=== PATIENT | female | born 1990 | race Caucasian/White ===

== ENCOUNTER → 2020-11-29 12:25 | Outpatient (CLI) | payer BC, SELFPAY ==
[2020-09-20 14:02] VITALS: BMI 28.8
== END ==
PROVIDERS: PCP Family Medicine; Referring Provider Nurse Practitioner Women's Health; Visit Provider Nurse Practitioner Women's Health
DX: N97.0 Female infertility associated with anovulation (principal)
CPT/HCPCS: 36415

== ENCOUNTER → 2021-01-18 10:58 | Outpatient (CLI) | payer BC, SELFPAY ==
[2020-09-20 14:02] VITALS: BMI 28.8
[2021-01-18 11:41] LABS: Progesterone Level 8.51 ng/mL (See Comment)
== END ==
PROVIDERS: PCP Family Medicine; Referring Provider Nurse Practitioner Women's Health; Visit Provider Nurse Practitioner Women's Health
DX: Z31.9 Encounter for procreative management, unspecified (principal)
CPT/HCPCS: 36415; 84144

== ENCOUNTER → 2021-03-08 11:24 | Outpatient (CLI) | payer BC, SELFPAY ==
[2021-02-26 15:19] VITALS: BMI 28.8
--- NOTE | 2021-03-08 11:26 | US_ITS ---
STUDY: ULTRASOUND OF THE FEMALE PELVIS - COMPLETE REASON FOR EXAM: Female, 30 years old. Irregular menses LMP: 02/28/2021. TECHNIQUE: Transabdominal and Transvaginal TECHNICAL QUALITY: Adequate. COMPARISON: None. FINDINGS: The uterus is anteflexed and is in a midline position. The uterus measures 8.8 cm x 4.9 cm x 4.2 cm. Normal uterine cervix. The endometrium measures 4.7 mm in thickness, and is heterogeneous (striated). There is no demonstrated endometrial mass. There is a 6 mm x 5 mm x 4 mm fibroid in the fundal portion of the uterus. I.U.D. - The patient does not have an I.U.D. The right ovary is visualized. The right ovary measures 3.9 cm x 2.3 cm x 1.7 cm. There is no right ovarian cyst or ovarian mass. There is no visualized right adnexal mass or complex lesion. There is normal arterial and normal venous vascularity. The left ovary is visualized. The left ovary measures 2.7 cm x 3.2 cm x 1.7 cm. There is no left ovarian cyst or ovarian mass. There is no visualized left adnexal mass or complex lesion. There is normal arterial and normal venous vascularity. There is minimal fluid in the cul-de-sac. US/Transvaginal Non- IMPRESSION: Small uterine fibroid. Electronically Signed: Shun Melgar MD at 13:57 EDT , Service support ,
--- NOTE | 2021-03-08 11:26 | US_ITS ---
STUDY: ULTRASOUND OF THE FEMALE PELVIS - COMPLETE REASON FOR EXAM: Female, 30 years old. Irregular menses LMP: 02/28/2021. TECHNIQUE: Transabdominal and Transvaginal TECHNICAL QUALITY: Adequate. COMPARISON: None. FINDINGS: The uterus is anteflexed and is in a midline position. The uterus measures 8.8 cm x 4.9 cm x 4.2 cm. Normal uterine cervix. The endometrium measures 4.7 mm in thickness, and is heterogeneous (striated). There is no demonstrated endometrial mass. There is a 6 mm x 5 mm x 4 mm fibroid in the fundal portion of the uterus. I.U.D. - The patient does not have an I.U.D. The right ovary is visualized. The right ovary measures 3.9 cm x 2.3 cm x 1.7 cm. There is no right ovarian cyst or ovarian mass. There is no visualized right adnexal mass or complex lesion. There is normal arterial and normal venous vascularity. The left ovary is visualized. The left ovary measures 2.7 cm x 3.2 cm x 1.7 cm. There is no left ovarian cyst or ovarian mass. There is no visualized left adnexal mass or complex lesion. There is normal arterial and normal venous vascularity. There is minimal fluid in the cul-de-sac. US/Pelvic (Non ) IMPRESSION: Small uterine fibroid. Electronically Signed: Shun Melgar MD at 13:57 EDT , Service support ,
== END ==
PROVIDERS: PCP Family Medicine; Referring Provider Obstetrics & Gynecology; Visit Provider Obstetrics & Gynecology
DX: Z87.42 Personal history of other diseases of the female genital tract (principal)
CPT/HCPCS: 76830; 76856

== ENCOUNTER → 2021-03-10 09:06 | Outpatient (CLI) | payer BC, SELFPAY ==
[2021-02-26 15:19] VITALS: BMI 28.8
[2021-03-10 09:48] LABS: Absolute Lymphocyte Count 2.64 X10^3/uL (0.83-4.51); Absolute Neutrophil Count 4.6 X10^3/uL (2.0-7.7); Basophil# 0.05 X10^3/uL; Basophil% 0.6 % (0-1); Eosinophil# 0.31 X10^3/uL; Eosinophils% 3.7 % (0-5); Hematocrit 39.8 % (37-47); Hemoglobin 12.9 g/dL (12.0-15.0); Lymphocyte # 2.64 X10^3/ul (0.83-4.51); Lymphocyte % 31.9 % (19-41); Mean Corp Hgb Conc 32.4 g/dL (32-36); Mean Corpuscular Hgb 28.3 pg (27.0-32.0); Mean Corpuscular Volume 87.3 fL (81-99); Mean Platelet Vol. 9.8 fl (6.2-12.0); Monocyte# 0.62 X10^3/uL; Monocyte% 7.5 % (0-10); NRBC Flagged by Analyzer 0 % (0-5); Neutrophil # 4.61 X10^3/uL (2.7-7.7); Neutrophil % 55.8 % (47-70); Platelet Count 267 K/mm3 (150-450); RBC Distribution Width CV 13.1 % (11.6-14.6); RBC Distribution Width SD 41.9 fl (35.1-43.9); Red Blood Count 4.56 M/mm3 (4.2-5.4); White Blood Count 8.3 K/mm3 (4.4-11.0)
[2021-03-10 10:37] LABS: Glucose 82 mg/dL (74-106); Thyroid Stim Hormone (TSH) 0.76 uIU/mL (0.358-3.74)
[2021-03-15 16:04] LABS: 17-Hydroxyprogesterone 85 ng/dL (.)
[2021-03-16 08:24] LABS: Testosterone Free 6.2 pg/mL (0.0-4.2)
== END ==
PROVIDERS: PCP Family Medicine; Referring Provider Obstetrics & Gynecology; Visit Provider Obstetrics & Gynecology
DX: Z87.42 Personal history of other diseases of the female genital tract (principal)
CPT/HCPCS: 36415; 82306; 82627; 82947; 83498; 84402; 84443; 85025; 82626

== ENCOUNTER → 2021-04-18 10:02 | Outpatient (CLI) | payer BC, SELFPAY ==
[2021-03-26 08:39] VITALS: BMI 28.8
[2021-04-18 10:56] LABS: Progesterone Level 58.39 ng/mL (See Comment)
== END ==
PROVIDERS: PCP Family Medicine; Referring Provider Obstetrics & Gynecology; Visit Provider Obstetrics & Gynecology
DX: R79.89 Other specified abnormal findings of blood chemistry (principal)
CPT/HCPCS: 36415; 84144

== ENCOUNTER → 2021-04-20 | Outpatient (CLI) | payer BC, SELFPAY | END | disposition home or self-care (01) | LOC: LABSPEC 16:50 | PROVIDERS: PCP Family Medicine; Referring Provider Obstetrics & Gynecology; Visit Provider Obstetrics & Gynecology | DX: R10.2 Pelvic and perineal pain (principal) | CPT/HCPCS: 87070; 87205 ==

== ENCOUNTER → 2021-05-10 09:45 | Outpatient (CLI) | payer BC, SELFPAY ==
--- NOTE | 2021-05-10 10:00 | RAD_ITS ---
STUDY: HYSTEROSALPINGOGRAM. REASON FOR EXAM: Female, 31 years old. Infertility FLUOROSCOPY TIME (if supplied): ( 18 seconds ) minutes/seconds. 2 images were obtained. TECHNIQUE: A hysterosalpingogram was performed by the manager of recruiting. Imaging was provided. COMPARISON: None. FINDINGS: The uterus is unremarkable. Both fallopian tubes are patent with free spill. RAD/Salpingogram IMPRESSION: Both fallopian tubes are patent with free spill. Electronically Signed: Shun Melgar MD at 11:45 EDT , Service support ,
--- NOTE | 2021-05-13 23:09 | OP.PCM_ITS ---
Problems Associated Problem List Diagnoses (1) Infertility: (2) History of irregular menstrual cycles: (3) Elevated testosterone level: (4) Pelvic pressure in female: Report of Operation Date of Procedure: 05/11/21 Description of Procedure: Preop diagnosis: Infertility Postop diagnosis: Same plus bilateral tubal patency Procedure: Hysterosalpingogram Surgeon: Carlie Alexandra Implantable devices: None Complications: None Findings: Bilateral tubal patency and normal uterine cavity Operative details: Patient was taken to the x-ray room and was placed on the x- ray table and was in the dorsal lithotomy position. Speculum was placed in the vagina and the cervix prepped with Betadine and the HSG catheter was easily introduced into the uterus and speculum removed. Radiologist was brought in and while pushing radiopaque dye into the uterus via the HSG catheter the radiologist took multiple images and views and confirmed bilateral tubal patency seen. No gross uterine filling defects or abnormalities were seen. All instruments removed from the vagina and the uterus without complication. Patient tolerated the procedure well.
== END ==
PROVIDERS: PCP Family Medicine; Referring Provider Obstetrics & Gynecology; Visit Provider Obstetrics & Gynecology
DX: Z87.42 Personal history of other diseases of the female genital tract (principal)
CPT/HCPCS: 58340; 74740; Q9967

== ENCOUNTER → 2021-05-21 | Outpatient (CLI) | payer BC, SELFPAY | END | disposition home or self-care (01) | LOC: LABSPEC 17:07 | PROVIDERS: PCP Family Medicine; Visit Provider Obstetrics & Gynecology | DX: R10.2 Pelvic and perineal pain (principal) | CPT/HCPCS: 87070; 87205 ==

== ENCOUNTER 2021-12-04 11:21 | Outpatient (CLI) | payer BC, SELFPAY | END 2021-12-04 23:59 | disposition home or self-care (01) | PROVIDERS: PCP Family Medicine; Visit Provider Student in an Organized Health Care Education/Training Program | DX: N76.0 Acute vaginitis (principal) ==

== ENCOUNTER → 2021-12-27 | Outpatient (CLI) | payer BC, SELFPAY ==
[2021-12-27 12:36] LABS: Progesterone Level 17.13 ng/mL (See Comment)
== END | disposition home or self-care (01) ==
LOC: WOBLAB 11:29
PROVIDERS: PCP Family Medicine; Visit Provider Student in an Organized Health Care Education/Training Program
DX: E28.2 Polycystic ovarian syndrome (principal)
CPT/HCPCS: 36415; 84144

== ENCOUNTER → 2022-01-25 | Outpatient (CLI) | payer BC, SELFPAY ==
[2022-01-25 11:40] LABS: Progesterone Level 15.63 ng/mL (See Comment)
== END | disposition home or self-care (01) ==
LOC: WOBLAB 09:43
PROVIDERS: PCP Family Medicine; Visit Provider Student in an Organized Health Care Education/Training Program
DX: E28.2 Polycystic ovarian syndrome (principal)
CPT/HCPCS: 36415; 84144

== ENCOUNTER → 2022-04-25 | Outpatient (CLI) | payer BC, SELFPAY ==
[2022-04-25 16:45] LABS: Progesterone Level 9.41 ng/mL (See Comment)
== END | disposition home or self-care (01) ==
LOC: WOBLAB 14:44
PROVIDERS: PCP Family Medicine; Visit Provider Student in an Organized Health Care Education/Training Program
DX: E28.2 Polycystic ovarian syndrome (principal)
CPT/HCPCS: 36415; 84144

== ENCOUNTER → 2022-05-29 | Outpatient (CLI) | payer BC, SELFPAY ==
[2022-05-29 14:55] LABS: Progesterone Level 18.88 ng/mL (See Comment)
[2022-05-29 15:02] LABS: Free T3 3.2 pg/mL (2.18-3.98); T4 Free Direct 0.95 ng/dL (0.76-1.46); Thyroid Stim Hormone (TSH) 1.79 uIU/mL (0.358-3.74)
== END | disposition home or self-care (01) ==
LOC: WOBLAB 13:47
PROVIDERS: PCP Family Medicine; Visit Provider Student in an Organized Health Care Education/Training Program
DX: N97.9 Female infertility, unspecified (principal)
CPT/HCPCS: 36415; 84144; 84439; 84443; 84481

== ENCOUNTER → 2022-06-11 | Outpatient (CLI) | payer BC, SELFPAY ==
[2022-06-11 11:37] LABS: Glucose 75GTT - 30 minutes 121 mg/dL (100-160)
[2022-06-11 11:37] LABS: Glucose 75GTT - 60 minutes 123 mg/dL (100-160)
[2022-06-11 11:37] LABS: Glucose 75GTT - Fasting 91 mg/dL (70-99)
[2022-06-11 13:05] LABS: Glucose 75GTT - 120 minutes 112 mg/dL (70-140)
== END | disposition home or self-care (01) ==
LOC: WOBLAB 10:00
PROVIDERS: PCP Family Medicine; Visit Provider Student in an Organized Health Care Education/Training Program
DX: N97.9 Female infertility, unspecified (principal)
CPT/HCPCS: 36415; 82951; 82952

== ENCOUNTER 2024-06-05 20:17 | Outpatient (CLI) | payer BC, SELFPAY ==
[2024-06-05 20:29] VITALS: BMI 29.5
[2024-06-05 20:38] VITALS: PULSE 117; O2SAT 99
[2024-06-05 20:39] VITALS: BP 122/83; PULSE 114
--- NOTE | 2024-06-05 21:09 | OB.TRI.NOTE ---
HPI - General General Date of Admission: 06/05/24 Date of Service: 06/05/24 Chief Complaint: Possible LOF HPI Narrative DAVE PRADO, is a 34 F who presents with possible LOF. She reports she was at a fair today and noticed her pants were wet on three occasions. Occasional vaginal discomfort and dysuria for one episode. No vaginal discharge or bleeding. H/o BV and bladder endometriosis. No cramping or abdominal pain. PFSH PFSH Medical History Fibromyalgia H/O herpes zoster H/O human papillomavirus infection Hematuria syndrome Migraines Home Medications ?Medication ?Instructions ?Recorded ?Last Taken ?Type docosahexaenoic acid 200 mg 1 mg PO DAILY 09/20/20 06/05/24 08:51 History capsule ( DHA) Allergy/AdvReac Type Severity Reaction Status Date / Time No Known Allergies Allergy Verified 06/05/24 20:49 Family History Grandfather DVT (deep venous thrombosis) Pacemaker CVA (cerebral vascular accident) Bleeding disorder Grandmother , age 61 Heart disease Hypertension Diabetes Sudden cardiac Father Diabetes Mother Fatty liver H/O Sjogren's disease Sister Thyroid disorder hashimotos hypothyroid Social History household members: spouse number of children: 0 current occupational status: employed current occupation: [employer] history of recent travel: No sexually active: Yes Smoking Status: Never smoker alcohol intake: never substance use type: does not use what type of physical activity do you participate in: aerobics seatbelt use: always do you feel safe at home: Yes additional social history: - Roque History 0 Elective abortions Hx Para Spontaneous abortions Hx # Term Pregnancies Ectopic pregnancies Hx # Pregnancies Multiple births # of living children Physical Exam Const alert and no apparent distress General Appearance: comfortable HEENT normocephalic Resp normal respiratory effort GI soft to palpation, non-tender and non-distended external exam normal, appearance of the vagina normal and appearance of the cervix normal Narrative: Cervix closed and thick Normal physiologic discharge noted No pooling of fluid Negative fern Extremity normal to inspection Assessment & Plan (1) 21 weeks gestation of : PLAN: Bedside TAUS performed showing subjectively normal fluid, movements noted, MVP 5.5, +FHT. SSE performed showing a closed cervix, negative for pooling, and negative for ferning. No evidence of vaginal infection on exam. No evidence of rupture. Check urine. Discharge home with return precautions. (2) Vaginal discharge:
[2024-06-05 21:10] LABS: Color, Urine Yellow (Yellow); Glucose, Dipstick Normal (Normal); Ketone-Dipstick Negative (Negative); Leukocyte Esterase-Dipstick Negative /ul (Negative); Nitrite-Dipstick Negative (Negative); Occult Blood-Urine 10 /ul (Negative); Protein-Dipstick Negative (Negative); Specific Gravity, Urine 1.015 (1.002-1.030); Urine Bilirubin Dipstick Negative (Negative); Urine Clarity Clear (Clear); Urine Urobilinogen Normal (Normal)
== END 2024-06-05 21:18 | disposition home or self-care (01) ==
LOC: WPOUT 20:21 → WP 20:21
PROVIDERS: PCP Family Medicine; Referring Provider Obstetrics & Gynecology; Visit Provider Obstetrics & Gynecology
DX: O99.891 Other specified diseases and conditions complicating pregnancy (principal); N89.8 Other specified noninflammatory disorders of vagina; Z3A.21 21 weeks gestation of pregnancy
CPT/HCPCS: 59050; 81002; 99221; G0378

== ENCOUNTER 2024-07-08 19:00 | Outpatient (CLI) | payer BC, SELFPAY ==
[2024-07-08 19:28] VITALS: BP 121/86; PULSE 109; RESP 16; TEMP 36.4
[2024-07-08 19:33] VITALS: BMI 30.2
[2024-07-08 19:43] VITALS: BP 110/77; PULSE 103; RESP 16
[2024-07-08 19:55] LABS: Hemoglobin 12.3 g/dL (12.0-15.0); Mean Corp Hgb Conc 34.2 g/dL (32-36); Mean Corpuscular Hgb 30.4 pg (27.0-32.0); Mean Corpuscular Volume 88.9 fL (81-99); Mean Platelet Vol. 9.3 fl (6.2-12.0); Platelet Count 257 K/mm3 (150-450); RBC Distribution Width CV 14.2 % (11.6-14.6); RBC Distribution Width SD 46.1 fl (35.1-43.9); Red Blood Count 4.05 M/mm3 (4.2-5.4); White Blood Count 13.8 K/mm3 (4.4-11.0)
[2024-07-08 19:58] VITALS: BP 103/72; PULSE 112; RESP 16
[2024-07-08 20:06] LABS: AST(SGOT) 22 U/L (15-37); Alanine Aminotransfer ALT/SGPT 31 U/L (13-56); Creatinine, Serum 0.55 mg/dL (0.55-1.02); EST Glomerular Filtration Rate 134 mL/min (>60); Est Glom Filt Rate - Afr Amer 163 mL/min (>60); Estimated Creatinine Clearance 142.13 ml/min; Uric Acid 2.8 mg/dL (2.6-6.0)
[2024-07-08 20:13] VITALS: BP 115/72; PULSE 97
[2024-07-08 20:17] LABS: Protein, Urine (Random) < 6.0 mg/dL (<11.9)
== END 2024-07-08 20:33 | disposition home or self-care (01) ==
LOC: WPOUT 19:02 → WP 19:02
PROVIDERS: PCP Family Medicine; Referring Provider Advanced Practice Midwife; Visit Provider Advanced Practice Midwife
DX: O99.891 Other specified diseases and conditions complicating pregnancy (principal); R03.0 Elevated blood-pressure reading, without diagnosis of hypertension; Z3A.25 25 weeks gestation of pregnancy
CPT/HCPCS: 59050; 82565; 82570; 84156; 84450; 84460; 84550; 85027; 99221; G0378

== ENCOUNTER 2024-08-10 16:42 | Outpatient (CLI) | payer BC, SELFPAY ==
[2024-08-10] VITALS (20 sets, daily range): BP systolic 119–139; BP diastolic 66–85; PULSE 96–115; RESP 16; TEMP 37.1; O2SAT 100; BMI 31.6
[2024-08-10] MEDS: DiphenhydrAMINE 50 MG/ML Syringe 25 MG IV (17:53)
[2024-08-10] MEDS: Metoclopramide 10 MG/2 ML Vial IV (17:53)
[2024-08-10 18:00] LABS: Hematocrit 34.4 % (37-47); Hemoglobin 11.5 g/dL (12.0-15.0); Mean Corp Hgb Conc 33.4 g/dL (32-36); Mean Corpuscular Hgb 29.2 pg (27.0-32.0); Mean Corpuscular Volume 87.3 fL (81-99); Mean Platelet Vol. 9.8 fl (6.2-12.0); Platelet Count 261 K/mm3 (150-450); RBC Distribution Width SD 43.9 fl (35.1-43.9); Red Blood Count 3.94 M/mm3 (4.2-5.4); White Blood Count 12.4 K/mm3 (4.4-11.0)
[2024-08-10 18:11] LABS: Protein, Urine (Random) 7.5 mg/dL (<11.9); Protein:Creat Ratio 349 mg/g CRE (0-200)
[2024-08-10 18:18] LABS: AST(SGOT) 23 U/L (15-37); Alanine Aminotransfer ALT/SGPT 24 U/L (13-56); Creatinine, Serum 0.55 mg/dL (0.55-1.02); EST Glomerular Filtration Rate 135 mL/min (>60); Est Glom Filt Rate - Afr Amer 163 mL/min (>60); Estimated Creatinine Clearance 145.43 ml/min; Uric Acid 2.7 mg/dL (2.6-6.0)
--- NOTE | 2024-08-10 19:30 | OB.TRI.NOTE ---
HPI - General General Date of Service: 08/10/24 Chief Complaint: Headache HPI Narrative DAVE PRADO, is a 34 F who presents from the office with a headache not improved by Tylenol or caffeine. BP elevated in office. 140-150s /88-99. Overall not feeling good. Decreased movement all day. No contraction no VB or LOF. No obvious UTI symptoms. Remote Hx of migraines. Has been awhile since they have been a problem BP in triage 120-130s/80s. Headache still present and mildly improved with IV Benadryl and Reglan. Protein of 349. LFTs and uric acid WNL. movement did improve Urinalysis with no protein. Discussed with patient 24 hour urine for pr/cr. And prolong BP monitoring given her early gestational age. If worsening BP or symptoms will transfer and start magnesium Maternal Data Information Final KALYAN: 10/16/24 Gestational age: 30+3 PFSH PFSH Medical History Fibromyalgia H/O herpes zoster H/O human papillomavirus infection Migraines Hematuria syndrome Home Medications ?Medication ?Instructions ?Recorded ?Last Taken ?Type docosahexaenoic acid 200 mg 1 mg PO DAILY 09/20/20 06/05/24 08:51 History capsule ( DHA) Lactobacillus cap PO 08/10/24 Unknown History no.51-Bifidobacterium no.4 50 billion cell capsule (up4 Probiotics Ultra) aspirin 81 mg chewable tablet 81 mg PO DAILY 08/10/24 Unknown History docosahexaenoic acid 200 mg mg PO 08/10/24 Unknown History capsule ( DHA) magnesium 200 mg tablet 200 mg PO DAILY 08/10/24 Unknown History Allergy/AdvReac Type Severity Reaction Status Date / Time No Known Allergies Allergy Verified 07/08/24 19:33 Family History Grandfather DVT (deep venous thrombosis) Pacemaker CVA (cerebral vascular accident) Bleeding disorder Grandmother , age 61 Heart disease Hypertension Diabetes Sudden cardiac Father Diabetes Mother Fatty liver H/O Sjogren's disease Sister Thyroid disorder hashimotos hypothyroid Social History household members: spouse number of children: 0 current occupational status: employed current occupation: [employer] history of recent travel: No sexually active: Yes Smoking Status: Never smoker alcohol intake: never substance use type: does not use what type of physical activity do you participate in: aerobics seatbelt use: always do you feel safe at home: Yes additional social history: - Roque History 1 Elective abortions Hx Para 0 Spontaneous abortions Hx # Term Pregnancies Ectopic pregnancies Hx # Pregnancies Multiple births # of living children ROS Constitutional Constitutional: Reports headache(s) and malaise Eyes Eyes: Denies blind spots or loss of vision ENT HEENT: Reports headache(s); Denies rhinorrhea, sinus pain or sore throat Cardiovascular Cardiovascular: Denies chest pain or dyspnea Gastrointestinal Gastrointestinal: Denies abdominal pain, diarrhea or vomiting Genitourinary Genitourinary: Denies dysuria Neurologic Neurologic: Denies other visual disturbances Physical Exam Const alert, oriented x3 and no apparent distress HEENT normocephalic and head/scalp atraumatic Eyes PERRL Neck full ROM Resp normal respiratory effort GI Palpation: soft; Negative for tender Uterus Palpation: Negative for uterus tender Extremity no pedal edema Neuro oriented x3 and CN's II-XII intact bilaterally NST FHR Rate Baby A Baseline: 140 Variability:: Moderate Accelerations:: 15 x 15 Decelerations:: None NST Reactive:: Yes FHR Category:: Category I Uterine Activity:: none Assessment & Plan (1) 30 weeks gestation of : (2) Proteinuria affecting in third trimester: (3) headache in third trimester: PLAN: Plan Complete 24 hour urine Repeat PIH labs Treat headache Has a remote hx of migraines
[2024-08-10 19:32] LABS: Mucous, Urine 0 SEEN /hpf (<or=2+); Red Blood Cells-Urine 0 SEEN /hpf (0-5); White Blood Cells 0 SEEN /hpf (0-5)
[2024-08-10 19:33] LABS: Color, Urine Yellow (Yellow); Glucose, Dipstick Normal (Normal); Ketone-Dipstick Negative (Negative); Leukocyte Esterase-Dipstick Negative /ul (Negative); Nitrite-Dipstick Negative (Negative); Occult Blood-Urine Negative /ul (Negative); Protein-Dipstick Negative (Negative); Specific Gravity, Urine 1.005 (1.002-1.030); Urine Bilirubin Dipstick Negative (Negative); Urine Clarity Clear (Clear); Urine Urobilinogen Normal (Normal); Urine pH 6.5 (5.0 - 8.0)
[2024-08-10 19:51] LABS: Bacteria RARE /hpf (None Seen); Squamous Epithelial Cells - UA 5-10 SEEN /hpf (5-10)
[2024-08-10] MEDS: Acetaminophen 500 MG Tablet 1000 MG PO (20:47)
[2024-08-10] MEDS: hydrOXYzine PAM 25 MG Capsule PO (22:45)
[2024-08-11 03:00] VITALS: BP 111/69; PULSE 104; RESP 16; TEMP 36.4
[2024-08-11 06:43] LABS: Hematocrit 34.7 % (37-47); Hemoglobin 11.6 g/dL (12.0-15.0); Mean Corp Hgb Conc 33.4 g/dL (32-36); Mean Corpuscular Hgb 29.4 pg (27.0-32.0); Mean Corpuscular Volume 88.1 fL (81-99); Mean Platelet Vol. 9.7 fl (6.2-12.0); Platelet Count 251 K/mm3 (150-450); RBC Distribution Width CV 14.2 % (11.6-14.6); RBC Distribution Width SD 44.9 fl (35.1-43.9); Red Blood Count 3.94 M/mm3 (4.2-5.4); White Blood Count 12.2 K/mm3 (4.4-11.0)
[2024-08-11 07:25] LABS: AST(SGOT) 21 U/L (15-37); Alanine Aminotransfer ALT/SGPT 23 U/L (13-56); Creatinine, Serum 0.59 mg/dL (0.55-1.02); EST Glomerular Filtration Rate 124 mL/min (>60); Est Glom Filt Rate - Afr Amer 150 mL/min (>60); Estimated Creatinine Clearance 135.57 ml/min; Uric Acid 2.7 mg/dL (2.6-6.0)
--- NOTE | 2024-08-11 07:48 | PCM.PN.OB ---
Subjective Subjective Headache is improved this AM. Now only a 1. [place] through a 24 urine collection. Repeat labs this am were normal. BP over night all WNL. Objective Data Objective Data Vital Signs: Vital Signs Temp Pulse Resp BP Pulse Ox 97.5 F L 104 H 16 111/69 100 08/11/24 03:00 08/11/24 03:00 08/11/24 03:00 08/11/24 03:00 08/10/24 22:46 Weight: 81.193 kg Body Mass Index (BMI) 31.6 Intake & Output: Intake and Output for Last 24 Hours 08/09/24 08/10/24 08/11/24 23:59 23:59 23:59 Output Total 350 / 350 240 / 240 Balance -350 / -350 -240 / -240 Lab / Micro Data 08/11/24 06:25 08/11/24 06:25 Labs: Laboratory Results - last 24 hr 08/10/24 17:25: WBC 12.4 H, RBC 3.94 L, Hgb 11.5 L, Hct 34.4 L, MCV 87.3, MCH 29.2, MCHC 33.4, RDW Std Deviation 43.9, RDW Coeff of Juan 14.0, Plt Count 261, MPV 9.8, Creatinine 0.55, Estim Creat Clear Calc 145.43, Est GFR (MDRD) Af Amer 163, Est GFR (MDRD) Non-Af 135, Uric Acid 2.7, AST 23, ALT 24, U Random Total Protein 7.5, Urine Creatinine 21.50, Protein/Creatinin Ratio 349 H 08/10/24 19:15: Urine Color Yellow, Urine Clarity Clear, Urine pH 6.5, Ur Specific [place] 1.005, Urine Protein Negative, Urine Glucose (UA) Normal, Urine Ketones Negative, Urine Occult Blood Negative, Urine Nitrite Negative, Urine Bilirubin Negative, Urine Urobilinogen Normal, Ur Leukocyte Esterase Negative, Urine RBC 0 SEEN, Urine WBC 0 SEEN, Ur Squamous Epith Cells 5-10 SEEN, Urine Bacteria RARE, Urine Mucus 0 SEEN 08/11/24 06:25: WBC 12.2 H, RBC 3.94 L, Hgb 11.6 L, Hct 34.7 L, MCV 88.1, MCH 29.4, MCHC 33.4, RDW Std Deviation 44.9 H, RDW Coeff of Juan 14.2, Plt Count 251, MPV 9.7, Creatinine 0.59, Estim Creat Clear Calc 135.57, Est GFR (MDRD) Af Amer 150, Est GFR (MDRD) Non-Af 124, Uric Acid 2.7, AST 21, ALT 23 ROS Constitutional Constitutional: Denies fever(s) or malaise Eyes Eyes: Denies change in vision ENT HEENT: Denies dizziness Cardiovascular Cardiovascular: Denies chest pain, dyspnea or lightheadedness Respiratory/Chest Respiratory/Chest: Denies cough or dyspnea Genitourinary Genitourinary: Denies burning urination Neurologic Neurologic: Denies confusion, dizziness, numbness or weakness Physical Exam Const alert and no apparent distress General Appearance: cooperative HEENT normocephalic Resp normal respiratory effort GI soft to palpation GI Narrative: gravid, nontender, appropriate for gestational age Extremity no calf tenderness General Extremity: Negative for edema Skin no wounds Rashes: No rashes noted Psych activity/motor behavior normal NST FHR Rate Baby A Baseline: 145 Variability:: Moderate Accelerations:: 15 x 15 Decelerations:: None NST Reactive:: Yes and Appropriate for gestational age Uterine Activity:: quiet Assessment & Plan (1) headache in third trimester: (2) Proteinuria affecting in third trimester: (3) 30 weeks gestation of : (4) Elevated blood pressure complicating in third trimester, antepartum: PLAN: Plan Complete 24 hour urine Needs repeat labs and Growth US in office next week Continued kick counts. Pre E precautions
[2024-08-11 07:54] VITALS: BP 119/72; PULSE 96; TEMP 37
[2024-08-11 11:35] VITALS: BP 127/80; PULSE 112
[2024-08-12 11:34] LABS: 24 Hour Urine Protein 385.2 mg/24HR (<150 MG/24HR); 24HR. UA Prot. Total Volume 2675 mL; 24HR. Urine Creatinine 1.23 g/24 HR (0.70-1.90); Creat.Clear Total Volume 2675 mL; Creatinine Clearance 145 ml/min (100-200); Creatinine Serum Creat 0.6 mg/dL (0.6-1.0); Creatinine Urine 46.1 mg/dL (NO RANGE EST.); EST Glomerular Filtration Rate 124 mL/min (>60); Est Glom Filt Rate - Afr Amer 150 mL/min (>60); Urine Protein (24 Hour) 14.4 mg/dL (<11.9)
== END 2024-08-11 13:30 | disposition home or self-care (01) ==
LOC: WPOUT 16:49 → WP 16:49
PROVIDERS: PCP Family Medicine; Referring Provider Obstetrics & Gynecology; Visit Provider Obstetrics & Gynecology
DX: O99.891 Other specified diseases and conditions complicating pregnancy (principal); O36.8130 Decreased fetal movements, third trimester, not applicable or unspecified; O12.13 Gestational proteinuria, third trimester; R51.9 Headache, unspecified; R03.0 Elevated blood-pressure reading, without diagnosis of hypertension; Z3A.30 30 weeks gestation of pregnancy
CPT/HCPCS: 96374; 96375; 59025; 59050; 81001; 81050; 82565; 82570; 82575; 84156; 84450; 84460; 84550; 85027; 87086; 87088; 99221; G0378

== ENCOUNTER → 2024-08-12 | Outpatient (CLI) | payer BC, SELFPAY | END | disposition home or self-care (01) | LOC: LABSPEC 08:20 | PROVIDERS: PCP Family Medicine; Referring Provider Obstetrics & Gynecology; Visit Provider Obstetrics & Gynecology | DX: Z00.00 Encounter for general adult medical examination without abnormal findings (principal) ==

== ENCOUNTER 2024-08-19 20:28 | Outpatient (CLI) | payer BC, SELFPAY ==
[2024-08-19 20:36] VITALS: BMI 32.9
[2024-08-19 20:45] VITALS: BP 145/82; PULSE 97; RESP 14; TEMP 36.6
[2024-08-19 20:46] VITALS: PULSE 101; O2SAT 98
[2024-08-19 20:59] VITALS: BP 132/81; PULSE 103
[2024-08-19] MEDS: Famotidine 20 MG Tablet 40 MG PO (21:24)
--- NOTE | 2024-08-20 03:56 | OB.TRI.NOTE ---
HPI - General General Date of Service: 08/19/24 HPI Narrative DAVE PRADO, is a 34 F who presents with decreased FM. Maternal Data Information KALYAN Calculator Estimated Delivery Date Method Current WG Current Estimate 10/16/24 Manual 31w 6d PFSH [facility] Medical History Fibromyalgia H/O herpes zoster H/O human papillomavirus infection Migraines Hematuria syndrome Home Medications ?Medication ?Instructions ?Recorded ?Last Taken ?Type docosahexaenoic acid 200 mg 1 mg PO DAILY 09/20/20 08/19/24 History capsule ( DHA) Lactobacillus 1 cap PO DAILY recurrent BV 08/10/24 08/19/24 History no.51-Bifidobacterium no.4 50 billion cell capsule (up4 Probiotics Ultra) aspirin 81 mg chewable tablet 81 mg PO DAILY 08/10/24 08/19/24 History magnesium 200 mg tablet 200 mg PO DAILY 08/10/24 08/19/24 History hydroxyzine HCl 10 mg tablet 10 mg PO QHS 08/19/24 08/18/24 History Allergy/AdvReac Type Severity Reaction Status Date / Time No Known Allergies Allergy Verified 08/19/24 20:47 Family History Grandfather DVT (deep venous thrombosis) Pacemaker CVA (cerebral vascular accident) Bleeding disorder Grandmother , age 61 Heart disease Hypertension Diabetes Sudden cardiac Father Diabetes Mother Fatty liver H/O Sjogren's disease Sister Thyroid disorder hashimotos hypothyroid Social History household members: spouse number of children: 0 current occupational status: employed current occupation: [employer] history of recent travel: No sexually active: Yes Smoking Status: Never smoker alcohol intake: never substance use type: does not use what type of physical activity do you participate in: aerobics seatbelt use: always do you feel safe at home: Yes additional social history: - Roque History 1 Elective abortions Hx Para 0 Spontaneous abortions Hx # Term Pregnancies Ectopic pregnancies Hx # Pregnancies Multiple births # of living children NST FHR Rate Baby A Baseline: 125 Variability:: Moderate Accelerations:: 15 x 15 Decelerations:: None NST Reactive:: Yes Uterine Activity:: Quiet Assessment & Plan (1) Decreased movement: QUALIFIERS: Fetus number: single or unspecified fetus Trimester: third trimester Qualified Code(s): O36.8130 - Decreased movements, third trimester, not applicable or unspecified PLAN: Reactive NST
== END 2024-08-19 21:28 | disposition home or self-care (01) ==
LOC: WPOUT 20:30 → WP 20:30
PROVIDERS: PCP Family Medicine; Referring Provider Obstetrics & Gynecology; Visit Provider Obstetrics & Gynecology
DX: O36.8130 Decreased fetal movements, third trimester, not applicable or unspecified (principal); Z3A.00 Weeks of gestation of pregnancy not specified
CPT/HCPCS: 59025; 59050; 99221; G0378

== ENCOUNTER 2024-09-25 05:50 | Inpatient (IN) | payer BC, SELFPAY ==
[2024-09-25] VITALS (42 sets, daily range): BP systolic 80–135; BP diastolic 54–96; PULSE 68–100; RESP 12–18; TEMP 36.1–36.6; O2SAT 96–100; BMI 33.5
[2024-09-25] MEDS: Lactated Ringers 1,000 ML 999 ML IV ×2 (06:15→09:30)
[2024-09-25 06:32] LABS: Absolute Lymphocyte Count 2.22 X10^3/uL (0.83-4.51); Absolute Neutrophil Count 7.9 X10^3/uL (2.0-7.7); Basophil# 0.05 X10^3/uL; Basophil% 0.4 % (0-1); Eosinophil# 0.18 X10^3/uL; Eosinophils% 1.6 % (0-5); Hematocrit 35.2 % (37-47); Hemoglobin 11.9 g/dL (12.0-15.0); Lymphocyte # 2.22 X10^3/ul (0.83-4.51); Lymphocyte % 19.8 % (19-41); Mean Corp Hgb Conc 33.8 g/dL (32-36); Mean Corpuscular Volume 85.9 fL (81-99); Monocyte# 0.69 X10^3/uL; Monocyte% 6.2 % (0-10); NRBC Flagged by Analyzer 0 % (0-5); Neutrophil # 7.86 X10^3/uL (2.7-7.7); Neutrophil % 70.3 % (47-70); Platelet Count 236 K/mm3 (150-450); RBC Distribution Width CV 15.4 % (11.6-14.6); RBC Distribution Width SD 47.1 fl (35.1-43.9); White Blood Count 11.2 K/mm3 (4.4-11.0)
[2024-09-25] MEDS: Acetaminophen 500 MG Tablet 1000 MG PO ×3 (06:40→18:44)
[2024-09-25 07:00] LABS: AST(SGOT) 11 U/L (15-37); Alanine Aminotransfer ALT/SGPT 17 U/L (13-56); Creatinine, Serum 0.62 mg/dL (0.55-1.02); EST Glomerular Filtration Rate 116 mL/min (>60); Est Glom Filt Rate - Afr Amer 141 mL/min (>60); Estimated Creatinine Clearance 132.89 ml/min; Uric Acid 3.6 mg/dL (2.6-6.0)
[2024-09-25] MEDS: Lactated Ringers 1,000 ML 150 ML IV (07:36)
[2024-09-25] MEDS: Sodium Citrate/Citric Acid 30 ML UDC PO (07:36)
[2024-09-25] MEDS: Cefazolin 2 GM in Syringe IV (08:15)
--- NOTE | 2024-09-25 08:15 | PCM.HP.OB ---
HPI - General General Date of Admission: 09/25/24 HPI Narrative DAVE PRADO, is a 34 F who presents for primary Maternal Data Information KALYAN Calculator Estimated Delivery Date Method Current WG Current Estimate 10/16/24 Manual 37w 0d PFSH [facility] Medical History (Updated 09/25/24 @ 08:[address] Sia Freeman MD) Endometriosis determined by laparoscopy Family history of hearing loss at age younger than 7 years Infertility Pre-eclampsia Fibromyalgia H/O herpes zoster H/O human papillomavirus infection Migraines Hematuria syndrome Home Medications ?Medication ?Instructions ?Recorded ?Last Taken ?Type docosahexaenoic acid 200 mg 1 mg PO DAILY 09/20/20 09/24/24 08:00 History capsule ( DHA) aspirin 81 mg chewable tablet 81 mg PO DAILY 08/10/24 09/24/24 08:00 History hydroxyzine HCl 10 mg tablet 10 mg PO QHS ANXIETY 08/19/24 09/24/24 21:00 History Allergy/AdvReac Type Severity Reaction Status Date / Time No Known Allergies Allergy Verified 09/25/24 06:13 Family History Grandfather DVT (deep venous thrombosis) Pacemaker CVA (cerebral vascular accident) Bleeding disorder Grandmother , age 61 Heart disease Hypertension Diabetes Sudden cardiac Father Diabetes Mother Fatty liver H/O Sjogren's disease Sister Thyroid disorder hashimotos hypothyroid Social History household members: spouse number of children: 0 current occupational status: employed current occupation: [employer] history of recent travel: No sexually active: Yes Smoking Status: Never smoker alcohol intake: never substance use type: does not use what type of physical activity do you participate in: aerobics seatbelt use: always do you feel safe at home: Yes additional social history: - Roque History 1 Elective abortions Hx Para 0 Spontaneous abortions Hx # Term Pregnancies Ectopic pregnancies Hx # Pregnancies Multiple births # of living children Vital Signs Vital Signs Vital Signs: 09/25/24 05:59 09/25/24 05:59 09/25/24 05:59 Temperature Temperature Source Pulse Rate 100 Respiratory Rate 16 Blood Pressure 125/94 H Blood Pressure Mean BP Systolic 125 BP Diastolic 94 Blood Pressure Source Blood Pressure Position Blood Pressure Location Pulse Ox Oxygen Delivery Method 09/25/24 05:59 09/25/24 05:59 09/25/24 05:59 Temperature 97.9 F Temperature Source Temporal Pulse Rate Respiratory Rate Blood Pressure Blood Pressure Mean BP Systolic BP Diastolic Blood Pressure Source Blood Pressure Position Blood Pressure Location Pulse Ox 97 Oxygen Delivery Method 09/25/24 06:15 Temperature 97.9 F Temperature Source Temporal Pulse Rate 100 Respiratory Rate 16 Blood Pressure 125/94 H Blood Pressure Mean 104 BP Systolic BP Diastolic Blood Pressure Source Monitor Blood Pressure Position Semi-Fowlers Blood Pressure Location Left Arm Pulse Ox 97 Oxygen Delivery Method Room Air Weight Weight: 189 lb 9.561 oz Body Mass Index (BMI) 33.5 Physical Exam Const alert, oriented x3 and no apparent distress GI soft to palpation, non-tender and non-distended Inspection: gravid Labs Labs Labs: Blood Type O NEGATIVE Antibody Screen NEGATIVE Hct 35.2 % (37-47) L Hgb 11.9 g/dL (12.0-15.0) L Syphilis Total Ab Pending Miscellaneous Test Assessment & Plan (1) Delivery by elective section: COMMENT: @ 37 weeks (2) Pre-eclampsia: QUALIFIERS: Trimester: third trimester Qualified Code(s): O14.93 - Unspecified pre-eclampsia, third trimester COMMENT: without severe features PLAN: Plan Patient has been counseled extensively on R/B/A of MOD. She declines and induction of labor. Patient wishes to proceed with a primary section. She has an inadequate pelvis and unfavorable cervix as well. Informed consent signed in office.
--- NOTE | 2024-09-25 09:16 | EX.PCM.OBRPT ---
Maternal Data Information KALYAN Calculator Estimated Delivery Date Method Current WG Current Estimate 10/16/24 Manual 37w 0d Operative Report (OB) Cecarean Details Procedure Type: low transverse Date of Procedure: 09/25/24 Procedure Start Time: 08:34 Procedure Stop Time: 09:16 Pre-Operative Diagnosis: Other ((1) Preeclampsia without severe features) Other Pre-Operative diagnosis: (2) Elective primary section Post-Operative Diagnosis: Same as Pre-operative diagnosis Classification: Scheduled Type of Anesthesia: Spinal Antibiotic Given: Ancef 2 grams IV x1 Drain: Walker to straight drain Estimated Blood Loss: 800ml Fluids Replaced: 1000ml Findings Description of surgery: The patient was taken to the operating room where spinal anesthesia was placed & found to be adequate. She was prepped and draped in the dorsal supine position with a leftward tilt. A Pfannenstiel skin incision was made approximately 2 cm above the symphysis pubis and carried through to the underlying fascia with the scalpel. The fascia was incised incised in the midline and extended laterally with the Bustos scissors. The rectus muscles were in the midline and the peritoneum was entered carefully and bluntly. The peritoneal incision was stretched and the bladder blade was inserted. Vesicouterine peritoneum was tented up, incised & then bladder flap created gently. The uterine incision was made in a low transverse fashion with the scalpel and extended superiorly and inferiorly with blunt dissection. The infant's head was brought to the incision in the flexed position and delivered without difficulty. The head was gently guided to allow delivery of the anterior and posterior shoulders. The body then delivered with fundal pressure in the standard fashion. The 3VC cord was clamped and cut in slightly delayed fashion. The was handed off to the waiting pediatric dermatologist. The placenta was delivered with fundal massage and gentle traction in the standard fashion. The uterus was exteriorized and cleared of clots and debris. The uterine incision was closed with #1 Vicryl suture in a running locked fashion. Monocryl suture was used in an imbricating fashion. The incision was examined and was found to be hemostatic. The uterus was returned to the abdominal cavity. After irrigating 1 additional figure of eight suture was placed to obtain further hemostasis on the uterine incision. Dana was placed over the uterine incision as some areas were denuded (but hemostatic). The rectus muscle was examined and any bleeding was Bovie cauterized. The fascia was closed with PDS suture in a running standard fashion. The subcutaneous tissue was examining and any bleeding was Bovie cauterized. The subcutaneous tissue was reapproximated with interrupted sutures. The skin was closed in a subcuticular fashion by the BRACELET AND BROOCH MAKER while I was present in the OR. The remainder of the procedure was performed by me with assistance. Surgical findings: normal maternal uterus and adnexa Presentation: Vertex Amniotic Membrane Rupture Type: Artificial Amniotic Fluid Description: Clear Placental Delivery Description: Expressed Placenta Disposition: [facility] Specimen collected: No Cord Vessel Description: 3 Vessels Cord Entanglement: Around neck x 1, loose Nuchal Cord Compression: Without compression A gender: Male (1 minute): 8 (5 minute): 9 Delayed Cord Clamping: Yes Assistant Director Of Security loin trimmer: Yes Mental Health Advanced Practice Nurse: Debby Berg Tasks completed by cutter first: Opening & closing, Hemostasis: Electrocautery and Retracting Additional human resources assistant manager?: No Complications Complications: No
[2024-09-25 09:29] LABS: Protein, Urine (Random) 23.4 mg/dL (<11.9); Protein:Creat Ratio 234 mg/g CRE (0-200)
[2024-09-25] MEDS: Oxytocin 15 Units/NS 250ml 15 UNITS/250 ML IV.SOLN 83 UNITS IV (09:30)
[2024-09-25 09:44] LABS: Syphilis Antibodies Non-reactive
[2024-09-25] MEDS: Ketorolac 30 MG/ML Syringe IV ×3 (10:14→22:31)
--- NOTE | 2024-09-25 19:22 | NURSING ---
0930 pt has a boil on her rt inner thigh- dr reyna viewed the boil while back in the OR- will continue to monitor.
[2024-09-25] MEDS: hydrOXYzine 10 MG Tablet PO (21:31)
[2024-09-25] MEDS: Enoxaparin 40 MG/0.4 ML Syringe SC (21:31)
[2024-09-25] MEDS: 0.9% Saline Lock 10 ML Syringe IV (22:31)
[2024-09-26] VITALS: BP 123/86; PULSE 102; RESP 16; TEMP 36.4; O2SAT 97
[2024-09-26] MEDS: Acetaminophen 500 MG Tablet 1000 MG PO ×3 (01:05→14:09)
[2024-09-26 04:00] VITALS: BP 120/83; PULSE 99; RESP 17; TEMP 36.6; O2SAT 97
[2024-09-26] MEDS: 0.9% Saline Lock 10 ML Syringe IV (04:51)
[2024-09-26] MEDS: Ketorolac 30 MG/ML Syringe IV (04:51)
[2024-09-26 05:42] LABS: Hematocrit 28.3 % (37-47); Hemoglobin 9.4 g/dL (12.0-15.0); Mean Corp Hgb Conc 33.2 g/dL (32-36); Mean Corpuscular Hgb 28.7 pg (27.0-32.0); Mean Corpuscular Volume 86.3 fL (81-99); Mean Platelet Vol. 9.8 fl (6.2-12.0); Platelet Count 190 K/mm3 (150-450); RBC Distribution Width CV 15.5 % (11.6-14.6); RBC Distribution Width SD 47.7 fl (35.1-43.9); Red Blood Count 3.28 M/mm3 (4.2-5.4); White Blood Count 16.8 K/mm3 (4.4-11.0)
[2024-09-26 08:14] VITALS: BP 112/77; PULSE 100; RESP 16; TEMP 36.9; O2SAT 97
--- NOTE | 2024-09-26 09:51 | PCM.PN.OB ---
Subjective Subjective She was not able to sleep last night and is feeling exhausted. Objective Data Objective Data Vital Signs: Vital Signs Temp Pulse Resp BP Pulse Ox O2 Del Method 98.4 F 100 16 112/77 97 Room Air 09/26/24 08:14 09/26/24 08:14 09/26/24 08:14 09/26/24 08:14 09/26/24 08:14 09/26/24 08:14 Oxygen Delivery Method Room Air Weight: 189 lb 9.561 oz Body Mass Index (BMI) 33.5 Intake & Output: Intake and Output for Last 24 Hours 09/24/24 09/25/24 09/26/24 23:59 23:59 23:59 Intake Total 4367.5 / 4367.5 Output Total 2600 / 2600 400 / 400 Balance 1767.5 / 1767.5 -400 / -400 Lab / Micro Data 09/26/24 05:35 09/25/24 06:40 Labs: Laboratory Results - last 24 hr 09/26/24 05:35: WBC 16.8 H, RBC 3.28 L, Hgb 9.4 L, Hct 28.3 L, MCV 86.3, MCH 28.7, MCHC 33.2, RDW Std Deviation 47.7 H, RDW Coeff of Juan 15.5 H, Plt Count 190, MPV 9.8 Physical Exam Const alert, oriented x3 and no apparent distress HEENT normocephalic GI soft to palpation, non-tender and non-distended GI Narrative: fundus firm, mid & below umbilicus Incision - bandage c/d/i Extremity normal to inspection and no calf tenderness Skin Skin Narrative: right thigh boil - less erythema (improving) Assessment & Plan (1) Delivery by elective section: COMMENT: POD#1 (2) Pre-eclampsia: QUALIFIERS: Trimester: third trimester Qualified Code(s): O14.93 - Unspecified pre-eclampsia, third trimester COMMENT: without severe features PLAN: Plan Heme - HDS & CBC reviewed. ID - AF, no signs infection. GI/ - no issues. PreE - BP's normal to mildly elevated. Will continue to monitor BP's. Leg boil - will cover and resume keflex. Insomnia - unisom as needed. Routine care.
--- NOTE | 2024-09-26 10:30 | NURSING ---
Tegaderm placed to inner right thigh to cover intact boil per VO of Dr. Freeman
[2024-09-26] MEDS: Ibuprofen 600 MG Tablet PO ×2 (11:14→17:41)
[2024-09-26] MEDS: Senna/Docusate Sodium 1 Tablet PO (11:15)
[2024-09-26] MEDS: Cephalexin 500 MG Capsule PO ×2 (14:11→17:41)
[2024-09-26 14:13] VITALS: BP 114/79; PULSE 103; RESP 16; TEMP 37; O2SAT 97
--- NOTE | 2024-09-26 17:27 | DS.PCM_ITS ---
Providers Date of Admission: 09/25/24 Date of Discharge: 09/26/24 Primary Care Physician: Dr. Ashu Baltazar MD Reason For Visit: PRIMARY C SECTION Diagnosis Discharge Diagnosis (1) Delivery by elective section: Status: Acute Code(s): O82 - Encounter for delivery without indication (2) Pre-eclampsia: Status: Acute Code(s): O14.90 - Unspecified pre-eclampsia, unspecified trimester Qualifiers: Trimester: third trimester Qualified Code(s): O14.93 - Unspecified pre- eclampsia, third trimester Plan Heme - HDS & CBC reviewed. ID - AF, no signs infection. GI/ - no issues. PreE - BP's normal to mildly elevated. Will continue to monitor BP's. Leg boil - will cover and resume keflex. Insomnia - unisom as needed. Routine care. Medications at Discharge Home Medications docosahexaenoic acid 200 mg capsule ( DHA) 1 mg PO DAILY 09/20/20 acetaminophen 500 mg tablet 1,000 mg (2 x 500 mg) PO Q6H #0 tabs 09/26/24 cephalexin 500 mg capsule 500 mg PO Q6 #0 caps 09/26/24 ibuprofen 600 mg tablet 600 mg PO Q6H #0 tabs 09/26/24 Hospital Course Operations section Summary of Care Provided Minutes Spent on Discharge: 15 Weight / BMI Weight Weight: 189 lb 9.561 oz Body Mass Index (BMI) 33.5 ABG / Lab / Microbiology Data 09/26/24 05:35 09/25/24 06:40 Laboratory: Laboratory Results - last 24 hr 09/26/24 05:35: WBC 16.8 H, RBC 3.28 L, Hgb 9.4 L, Hct 28.3 L, MCV 86.3, MCH 28.7, MCHC 33.2, RDW Std Deviation 47.7 H, RDW Coeff of Juan 15.5 H, Plt Count 190, MPV 9.8 D/C Instructions Discharge Diet: No restrictions Discharge Activity: May Shower May resume sexual activity in: 6 weeks Weight Bearing Status: Weight bearing as tolerated Call your doctor if your incision/area has: Continuous Slow Oozing, Sudden Increased Bleeding, Increased Pain/ Swelling, Increased Redness, Foul Smelling Discharge and Swelling at the incision site Call your doctor if you observe: Fever of 101 or Higher, Coldness, Increased Pain, Change in Color, Inability to urinate, Inability to have a bowel movement, Using more than 1 pad per hour, Shortness of breath, Dizziness, Fainting spells, Chest pain, Increased palpitations (irregular heartbeat), Calf discomfort and Uncontrolled pain Suture Line Care: Avoid Pulling/Pushing and Avoid Pinching/Bending Remove Dressing in: 1 week Cleanse incision/area with: Soap & Water DC O2, CPAP, BIPAP Needs Home O2 Discharge instructions: No Please Follow Up With: Sia Freeman MD When: 1-2 days Meaningful Use Info Meaningful Use Meaningful Use Diagnoses (Choose all that apply): None applicable Ischemic Stroke Statin Dosing Therapy Reference: STATIN DOSE THERAPY REFERENCE: * Patients > 75 years receive moderate or high dose statin therapy. * Patients 75 years or YOUNGER should receive HIGH intensity statin dose unless contraindicated. You will be required to document reason for non-treatment if statin daily dose does not meet guidelines. HIGH DOSE STATIN THERAPY DAILY Atorvastatin > than or = to 40 mg Rosuvastatin > than or = to 20 mg Amlodipine + Atorvastatin > than or = to 2.5/40 mg Ezetimibe + Simvastatin 10/80 mg Simvastatin 80mg Discharge Plan Admission Admit Date/Time: 09/25/24 05:50 Primary Reason for Your Visit: section Attending Provider: Sia Freeman Primary Care Provider: Ashu Baltazar Discharge Orders/Prescriptions Prescriptions: New acetaminophen 500 mg Tablet 1,000 mg PO Q6H Qty: 0 0RF cephalexin 500 mg Capsule 500 mg PO Q6 Qty: 0 0RF ibuprofen 600 mg Tablet 600 mg PO Q6H Qty: 0 0RF Continued DHA 200 mg capsule 1 mg PO DAILY Discontinued hydroxyzine HCl 10 mg tablet 10 mg PO QHS aspirin 81 mg tablet,chewable 81 mg PO DAILY Referrals / Follow Up: Ashu Baltazar MD [Primary Care Provider] - Disposition Disposition (needs filled in before D/C Order can be placed): Home, Self Care
[2024-09-26 17:36] VITALS: BP 135/91; PULSE 111; RESP 16; TEMP 37; O2SAT 98
== END 2024-09-26 19:00 | disposition home or self-care (01) | DRG 787 ==
PROVIDERS: Admitting Provider Obstetrics & Gynecology; PCP Family Medicine; Referring Provider Obstetrics & Gynecology; Visit Provider Obstetrics & Gynecology
PROC: 10D00Z1 Extraction of Products of Conception, Low, Open Approach (ICD-10-PCS; CPT 59514; principal; 2024-09-25 07:45)
DX: O14.04 Mild to moderate pre-eclampsia, complicating childbirth (principal); O99.354 Diseases of the nervous system complicating childbirth; L02.425 Furuncle of right lower limb; M79.7 Fibromyalgia; F41.9 Anxiety disorder, unspecified; O69.81X0 Labor and delivery complicated by cord around neck, without compression, not applicable or unspecified; G47.00 Insomnia, unspecified; O99.72 Diseases of the skin and subcutaneous tissue complicating childbirth; Z37.0 Single live birth; Z3A.37 37 weeks gestation of pregnancy; O99.892 Other specified diseases and conditions complicating childbirth; O99.344 Other mental disorders complicating childbirth; Z86.19 Personal history of other infectious and parasitic diseases; Z79.82 Long term (current) use of aspirin; Z79.899 Other long term (current) drug therapy
CPT/HCPCS: 59025; 59050; 82565; 82570; 84156; 84450; 84460; 84550; 85025; 85027; 86780; 86850; 86900; 86901; 99221; A4216; G0378; J2405

== ENCOUNTER 2024-09-30 14:48 | Emergency (ER) | payer BC, SELFPAY ==
[2024-09-30 14:50] VITALS: BP 117/86; PULSE 92; RESP 15; TEMP 36.4; O2SAT 100; BMI 31.6
--- NOTE | 2024-09-30 16:13 | EDS_ITS ---
HPI History of Present Illness Chief Complaint: Wound Check Informant: patient Narrative Narrative: 34-year-old female has had a tender swollen area on her medial right proximal thigh for the past week. She recently had a . Someone told her wound looks like it might be MRSA. She then saw her CORPORATE DEVELOPMENT MANAGER and was put on cephalexin for it agreeing that it may be MRSA. She then went to the [facility] emergency room in [place] where she had an incision and drainage and she states the doctor told her I may not have gotten at all. She was prescribed Bactrim, continue the cephalexin, the wound was not packed, and she feels like it is getting worse. She has been having occasional fevers last 1 was a couple days ago up to 101. It was not draining before she had a cut open. She is feeling okay now. [facility] Medical History (Updated 09/30/24 @ 18:[address] Osman Ballesteros MD) delivery delivered Endometriosis determined by laparoscopy Family history of hearing loss at age younger than 7 years Infertility Pre-eclampsia Fibromyalgia H/O herpes zoster H/O human papillomavirus infection Migraines Hematuria syndrome Home Medications ?Medication ?Instructions ?Recorded ?Last Taken ?Type docosahexaenoic acid 200 mg 1 mg PO DAILY 09/24/24 08:00 History capsule ( DHA) acetaminophen 500 mg tablet 1,000 mg (2 x 500 mg) PO Q 6H #0 09/26/24 Unknown Rx tabs ibuprofen 600 mg tablet 600 mg PO Q6H #0 tabs Unknown Rx mupirocin 2 % topical ointment 1 applic topical BID #1 5 grams 09/30/24 Unknown Rx oxycodone 5 mg tablet 5 mg PO Q6H PRN PRN severe p ain 09/30/24 Unknown History sulfamethoxazole 800 1 tab PO BID 09/30/24 Unknow n History mg-trimethoprim 160 mg tablet sulfamethoxazole 800 1 tab PO BID #10 TABLETS Unknown Rx mg-trimethoprim 160 mg tablet Allergy/AdvReac Type Severity Reaction Status Date / Time No Known Allergies Allergy Verified 09/30/24 14:50 Family History Grandfather DVT (deep venous thrombosis) Pacemaker CVA (cerebral vascular accident) Bleeding disorder Grandmother , age 61 Heart disease Hypertension Diabetes Sudden cardiac Father Diabetes Mother Fatty liver H/O Sjogren's disease Sister Thyroid disorder hashimotos hypothyroid Social History (Updated 09/30/24 @ 16:22 by Marilyn Joseph) household members: spouse and children number of children: 0 current occupational status: employed current occupation: [employer] history of recent travel: No sexually active: Yes Smoking Status: Never smoker alcohol intake: never substance use type: does not use what type of physical activity do you participate in: aerobics seatbelt use: always do you feel safe at home: Yes additional social history: - Roque EDEN ROS ED Constitutional Constitutional ED: Reports fever(s); Denies chills Gastrointestinal Gastrointestinal: Reports other Details: Mild soreness low-transverse incision, discomfort has been improving minimal drainage on dressing which she has not changed. Musculoskeletal Musculoskeletal: Reports extremity pain; Denies neck pain Integumentary Reports abscess; Denies Abrasions or rash Neurologic Neurologic: Denies paresthesias or weakness EXAM Physical Exam Const Vital Signs: 09/30/24 14:50 09/30/24 16:49 09/30/24 18:00 Temperature 97.6 F L Temperature Source Temporal Pulse Rate 92 81 75 Respiratory Rate 15 18 16 Blood Pressure 117/86 H 138/71 H Blood Pressure Mean 96 93 Pulse Ox 100 99 99 Oxygen Delivery Method Room Air Positive well nourished and well developed General Appearance ED: well developed and NAD Neck full ROM and supple GI GI Narrative: Distended nontender abdomen. incision is very benign nontender no dehiscence, discharge, signs of cellulitis or infection. There is a diffuse maculopapular rash on her abdomen that is nontender without petechia or bullae, she states it has been itchy but improving, was due to something they cleaned her abdomen with for surgery. Back/Spine normal ROM and normal to inspection Extremity Extremity Narrative: 2 cm area of erythema and induration without spontaneous discharge proximal right medial thigh. Difficult to tell if it is a large cavity, it is not fluctuant. Neuro oriented x3, no focal motor deficits and no sensory deficits noted Sensorium / Orientation: alert Psych mental status grossly normal and thought process normal Skin Skin Narrative: Rash on abdomen see above. Abscess compatible with MRSA right thigh see above. Rashes: no rashes MDM MDM MDM Narrative Medical decision making narrative: I took the bandage off of the dressing. looked at it and said oh it looks better. The patient states that it may be a little worse. There is no line drawn around it to suggest where the erythema started and this is the first time anyone in this ED has seen this lesion. The conservative treatment would be to perform incision and drainage. She understands the risk which is basically pain and the possibility that there is nothing inside. She is amenable to that. I advise that she discontinue the cephalexin, as I agree this is MRSA until proven otherwise and that does not cover MRSA. She was only prescribed 7 days of Bactrim. I advised her to continue that till it is finished, going to give her a prescription for another 5 days to use if the pain and erythema is not resolved by the end. Given appropriate discharge instr uctions. Procedures Other Procedures Procedure(s): Complex abscess incision and drainage right thigh: After informed consent, the abscess of the right thigh was prepped and draped in a sterile fashion with chlorhexidine, anesthetized with a total of 3 cc of plain 1% lidocaine, and incised with a #10 blade with a 0.5 cm incision centrally. I probed and deloculated the cavity, there is a central portion of it that is quite deep. A very small amount of purulent material was expressed after all of this, the cavity was irrigated, and packed with sterile half-inch gauze. Tolerated well, I meryl a line around the erythema to help them follow it and showed the so he can follow it, tolerated well with no complications. Discharge Plan Triage Chief Complaint: Wound Check ED Provider: Osman Ballesteros Dx/Rx/DC Orders Clinical Impression: Abscess of right thigh Instructions: ED Abscess Incision And Drainage Prescriptions: New sulfamethoxazole-trimethoprim 800-160 mg tablet 1 tab PO BID Qty: 10 0RF mupirocin 2 % ointment 1 applic topical BID Qty: 15 0RF Rx Instructions: to affected area No Action DHA 200 mg capsule 1 mg PO DAILY acetaminophen 500 mg Tablet 1,000 mg PO Q6H Qty: 0 0RF ibuprofen 600 mg Tablet 600 mg PO Q6H Qty: 0 0RF sulfamethoxazole-trimethoprim 800-160 mg tablet 1 tab PO BID oxycodone 5 mg tablet 5 mg PO Q6H PRN PRN (Reason: severe pain) Primary Care Provider: Doug Lion Referrals: wheel alignment technician, your [Other] - 3-5 Days if not improving Activity Restrictions/Additional Instructions: Try to leave packing intact for 48 hours and then remove and discard. If it falls out earlier than that, do not worry about it, just continue dressing changes. If there is any water that gets into the area after a shower or what not, you may gently apply pressure to the surrounding area to express it prior to a new dressing change. Antibiotic ointment on the area with these dressing changes okay as well. If you are concerned about it recurring or getting worse, return to the ER for reevaluation. Print Language: Cambodian Disposition Disposition: Home, Self Care
[2024-09-30] MEDS: Lidocaine 1% (20 ml mdv) 20 ML Vial INFILT (16:19)
[2024-09-30 16:49] VITALS: PULSE 81; RESP 18; O2SAT 99
[2024-09-30 18:00] VITALS: BP 138/71; PULSE 75; RESP 16; O2SAT 99
[2024-09-30 18:37] VITALS: BP 137/89; PULSE 75; RESP 16; TEMP 36.6; O2SAT 99
== END 2024-09-30 18:38 | disposition home or self-care (01) ==
PROVIDERS: Emergency Provider Emergency Medicine; PCP Student in an Organized Health Care Education/Training Program; Referring Provider Emergency Medicine; Visit Provider Emergency Medicine
DX: L02.415 Cutaneous abscess of right lower limb (principal); B95.62 Methicillin resistant Staphylococcus aureus infection as the cause of diseases classified elsewhere
CPT/HCPCS: 10061; 99282